=== PATIENT | male | born 1945 | race Caucasian/White ===

== ENCOUNTER 2016-10-07 11:54 | Inpatient (IN) | payer MEDICARE ==
[~2016-10-07] VITALS: Ht 175.3 cm; Wt 72.5 kg
[2016-10-10] MEDS ORDERED: CARB25TA9 PO (14:11)
[2016-10-10] MEDS ORDERED: METF850T PO (14:11)
[2016-10-10] MEDS ORDERED: LISI-515 PO (14:11)
[2016-10-10] MEDS ORDERED: PROP20TA3 PO (14:11)
[2016-10-10] MEDS ORDERED: MULTTAB67 PO (14:12)
[2016-10-10] MEDS ORDERED: COEN1CAP PO (14:14)
[2016-10-10] MEDS ORDERED: VITA2000 PO (14:14)
[2016-10-14] MEDS ORDERED: ALVIMOPAN 12 MG CAPSULE - On Call PO SCH (06:00)
[2016-10-14] MEDS ORDERED: ceFAZolin 1,000 MG/NS 100 ML IV SCH ×2 (06:00)
[2016-10-14] MEDS ORDERED: METRONIDAZOLE 500 MG/100 ML ISONTONIC SOLN IV PRN (06:00)
[2016-10-14] MEDS ORDERED: METOPROLOL TARTRATE 25 MG TAB PO PRN (06:30)
[2016-10-14] MEDS ORDERED: LACTATED RINGER'S 1000 ML IV PRN (06:30)
[2016-10-14] MEDS ORDERED: POVIDONE IODINE 5% (ANTISEPSIS KIT) 4 APPLICATIONS EACH NARE PRN (06:30)
[2016-10-14] MEDS ORDERED: INSULIN HUMAN REGULAR 1,000 UNITS/10 ML VIAL SQ PRN (06:30)
[2016-10-14] MEDS ORDERED: SODIUM CHLORID 0.9% 500 ML IV PRN (06:30)
[2016-10-14] MEDS ORDERED: CHLORHEXIDINE GLUCONATE 2 % 1 PACK (2 CLOTHS) TOPICAL PRN (06:30)
[2016-10-14 06:38] VITALS: BP 150/82; PULSE 70; RESP 20; TEMP 98.5; O2SAT 100
[2016-10-14] MEDS ORDERED: FAMOTIDINE 20 MG/2 ML VIAL ONE (07:20)
[2016-10-14] MEDS ORDERED: MIDAZOLAM HCL 2 MG/2 ML VIAL ONE (07:20)
[2016-10-14 07:29] LABS: AUTOMATED NEUTROPHIL # 5.4 TH/MM3 (1.8-7.7); BASOPHIL # 0.1 TH/MM3 (0-0.2); BASOPHIL % 0.6 % (0.0-2.0); EOSINOPHIL # 0.1 TH/MM3 (0-0.4); EOSINOPHIL % 1.7 % (0.0-4.0); HEMATOCRIT 36.9 % (39.0-51.0); HEMO FLAGS DIFF FINAL; LYMPH % 26.6 % (9.0-44.0); LYMPHOCYTE # 2.4 TH/MM3 (1.0-4.8); MEAN CORPUSCULAR HEMOGLOBIN 36.2 PG (27.0-34.0); MEAN CORPUSCULAR HGB CONC 35.9 % (32.0-36.0); MONO % 10.7 % (0.0-8.0); NEUT % 60.4 % (16.0-70.0); PLATELET COUNT 140 TH/MM3 (150-450); RED BLOOD COUNT 3.66 MIL/MM3 (4.50-5.90); RED CELL DISTRIBUTION WIDTH 12.9 % (11.6-17.2); WHITE BLOOD COUNT 8.9 TH/MM3 (4.0-11.0)
[2016-10-14 07:54] LABS: BICARBONATE 29.3 MEQ/L (21.0-32.0); POTASSIUM 4.4 MEQ/L (3.5-5.1)
[2016-10-14] MEDS ORDERED: BUPIVACAINE HCL PF 0.5% 30 ML VIAL ONE (08:09)
[2016-10-14] MEDS ORDERED: DO NOT ADM ANY ANTICOAGULANT DRUGS PRN (10:12)
[2016-10-14] MEDS ORDERED: hydrALAZINE HCL 20 MG/ML VIAL ONE (10:13)
[2016-10-14] MEDS ORDERED: NALOXONE HCL 0.4 MG/ML AMP IV PRN ×2 (10:15)
[2016-10-14] MEDS ORDERED: SODIUM CHLORIDE 0.9% FLUSH 10 ML FLUSH IV FLUSH PRN (10:15)
[2016-10-14] MEDS ORDERED: ONDANSETRON HCL 4 MG/2 ML VIAL IV PRN (10:15)
[2016-10-14] MEDS ORDERED: HYDROmorphone HCL PF 1 MG/ML VIAL IV PRN (10:15)
[2016-10-14] MEDS ORDERED: Post-op Orders (for Pharmacy) MISC XX ONE (10:15)
[2016-10-14] MEDS ORDERED: fentaNYL CITRATE 250 MCG/5 ML AMP ONE (10:17)
[2016-10-14] MEDS ORDERED: *morphine SULFATE 8 MG/ML PERIprocedure ONLY ONE (10:22)
[2016-10-14] MEDS: LACTATED RINGER'S 1000 ML INJ 1,000 ML IV SCH ×2 (10:45→23:40)
[2016-10-14] MEDS: HYDROmorphone HCL PCA 6 MG/30 ML IV SCH (10:49)
[2016-10-14] MEDS ORDERED: hydrALAZINE HCL 20 MG/ML VIAL IV PUSH ONE (11:00)
[2016-10-14] MEDS: ACETAMINOPHEN 1000 MG/100 ML VIAL IV SCH ×3 (11:08→23:39)
[2016-10-14] MEDS ORDERED: LACTATED RINGER'S 1000 ML INJ 1,000 ML IV ONE (12:00)
[2016-10-14] MEDS ORDERED: PROPOFOL 200 MG/20 ML AMP IV ONE (12:00)
[2016-10-14] MEDS ORDERED: ONDANSETRON HCL 4 MG/2 ML VIAL IV PUSH ONE (12:00)
[2016-10-14] MEDS ORDERED: KETOROLAC TROMETHAMINE 60 MG/2 ML (IM) VIAL IM ONE (12:00)
[2016-10-14] MEDS ORDERED: NEOSTIGMINE 3 MG/3 ML SYR IV ONE (12:00)
--- NOTE | 2016-10-14 12:05 | EKG ---
Date Performed: 10/14/2016 Time Performed: 06:55:23 PTAGE: 71 years EKG: Sinus rhythm NONSPECIFIC ST & T-WAVE ABNORMALITY BORDERLINE ECG PREVIOUS TRACING : 02/15/2001 14.21 Compared to prior tracing no significant change DOCTOR: Cipriano Pérez Interpretating Date/Time 10/14/2016 12:03:12
[2016-10-14] MEDS: PANTOPRAZOLE SODIUM 40 MG VIAL IV SCH (13:10)
[2016-10-14 20:00] VITALS: BP 141/68; PULSE 90; RESP 18; TEMP 96.7; O2SAT 98
[2016-10-14] MEDS: PCA - TOTAL MG DILAUDID DELIVERED PER SHIFT OTHER SCH (22:00)
[2016-10-14] MEDS: SODIUM CHLORIDE 0.9% FLUSH 10 ML FLUSH IV FLUSH SCH (23:40)
[2016-10-15] VITALS (8 sets, daily range): BP systolic 112–176; BP diastolic 56–86; PULSE 80–117; RESP 17–20; TEMP 96.1–99; O2SAT 92–99
[2016-10-15] MEDS: HYDROmorphone HCL PCA 6 MG/30 ML IV SCH (03:01)
[2016-10-15] MEDS: ACETAMINOPHEN 1000 MG/100 ML VIAL IV SCH (05:49)
[2016-10-15] MEDS: PCA - TOTAL MG DILAUDID DELIVERED PER SHIFT OTHER SCH ×3 (06:00→22:00)
[2016-10-15] MEDS: LACTATED RINGER'S 1000 ML INJ 1,000 ML IV SCH ×2 (07:51→16:14)
[2016-10-15] MEDS: SODIUM CHLORIDE 0.9% FLUSH 10 ML FLUSH IV FLUSH SCH ×2 (08:35→23:00)
[2016-10-15] MEDS: ALVIMOPAN 12 MG CAPSULE - Post-op dosing PO SCH ×2 (08:35→21:00)
--- NOTE | 2016-10-15 08:52 | HHI.PR ---
Subjective Subjective Notes DAILY PROGRESS NOTE FOR SURGICAL ATTENDING, DR. DARYL VANEGAS i slept all night I didn't have any pain Objective Vitals/I&O 10/14/16 10/14/16 10/15/16 15:00 23:00 07:00 Intake Total 1500 ml 570 ml 1256 ml Output Total 750 ml 550 ml 450 ml Balance 750 ml 20 ml 806 ml Intake Oral 120 ml 120 ml IV Total 450 ml 1136 ml Other 1500 ml Output Urine Total 700 ml 550 ml 450 ml Estimated Blood Loss 50 ml # Bowel Movements 0 0 Labs Laboratory Tests Test 10/14/16 06:50 White Blood Count 8.9 TH/MM3 Red Blood Count 3.66 MIL/MM3 Hemoglobin 13.2 GM/DL Hematocrit 36.9 % Mean Corpuscular Volume 101.0 FL Mean Corpuscular Hemoglobin 36.2 PG Mean Corpuscular Hemoglobin 35.9 % Concent Red Cell Distribution Width 12.9 % Platelet Count 140 TH/MM3 Mean Platelet Volume 8.3 FL Neutrophils (%) (Auto) 60.4 % Lymphocytes (%) (Auto) 26.6 % Monocytes (%) (Auto) 10.7 % Eosinophils (%) (Auto) 1.7 % Basophils (%) (Auto) 0.6 % Neutrophils # (Auto) 5.4 TH/MM3 Lymphocytes # (Auto) 2.4 TH/MM3 Monocytes # (Auto) 1.0 TH/MM3 Eosinophils # (Auto) 0.1 TH/MM3 Basophils # (Auto) 0.1 TH/MM3 CBC Comment DIFF FINAL Differential Comment Sodium Level 140 MEQ/L Potassium Level 4.4 MEQ/L Chloride Level 101 MEQ/L Carbon Dioxide Level 29.3 MEQ/L Anion Gap 10 MEQ/L Blood Urea Nitrogen 11 MG/DL Creatinine 0.92 MG/DL Estimat Glomerular Filtration 81 ML/MIN Rate Random Glucose 163 MG/DL Calcium Level 9.4 MG/DL Blood Type O POSITIVE Antibody Screen NEGATIVE Blood Bank Comment Cardiovascular: Regular Lungs: Clear Abdomen: Post-op tenderness Extremities: No edema, SCD's on Narrative Exam RAZA dressing intact Wound Wound : Wound Location: Abdomen Appearance: Clean & Dry Dressing: Dry A/P Problem List: (1) Status post colon resection (2) Mass of hepatic flexure of colon Assessment and Plan 71-year-old gentleman status post laparoscopic-assisted extended right colon resection doing well Minimal discomfort DC Pablo spirometer Slowly advance diet as tolerated Await path report Anticipate discharge the weekend Attending Statement NOTE FOR SURGICAL ATTENDING, DR. DARYL VANEGAS I agree with above assessment and plan. The following services were provided during this hospital visit: Chart data review, vital sign assessments/reviewing monitor data Review of consultations notes if present. Medication orders/review and/or management Ordering and/or reviewing lab tests Ordering and/or interpreting/reviewing x-rays and/or diagnostic studies Care of the patient and discussion of the patient with the care team Documentation time To help prompt me to consider important information that might be impacting today's encounter and assessment, information from prior notes written by myself or my colleagues may have been "brought forward/copy and pasted" into today's note. Daryl Vanegas MD Oct 15, 2016 08:52
[2016-10-15] MEDS: ENOXAPARIN SODIUM 30 MG/0.3 ML SYRINGE SQ SCH (09:32)
[2016-10-15] MEDS: PANTOPRAZOLE SODIUM 40 MG VIAL IV SCH (12:18)
[2016-10-15] MEDS: ALVIMOPAN 12 MG CAPSULE PO SCH (22:03)
[2016-10-16] VITALS: BP 142/80; PULSE 97; RESP 18; TEMP 99.5; O2SAT 93
[2016-10-16] MEDS: HYDROmorphone HCL PCA 6 MG/30 ML IV SCH (00:36)
[2016-10-16] MEDS: LACTATED RINGER'S 1000 ML INJ 1,000 ML IV SCH ×2 (02:14→11:34)
[2016-10-16] MEDS: PCA - TOTAL MG DILAUDID DELIVERED PER SHIFT OTHER SCH (06:00)
[2016-10-16] MEDS: ALVIMOPAN 12 MG CAPSULE - Post-op dosing PO SCH ×2 (07:26→21:00)
[2016-10-16] MEDS: ENOXAPARIN SODIUM 30 MG/0.3 ML SYRINGE SQ SCH (07:57)
[2016-10-16] MEDS: ALVIMOPAN 12 MG CAPSULE PO SCH ×2 (07:57→21:52)
[2016-10-16] MEDS: SODIUM CHLORIDE 0.9% FLUSH 10 ML FLUSH IV FLUSH SCH ×2 (07:57→19:55)
[2016-10-16 08:00] VITALS: BP 189/81; PULSE 110; RESP 19; TEMP 96; O2SAT 92
--- NOTE | 2016-10-16 10:37 | MP ---
cc: JONATHON VANEGAS M.D. DATE OF SURGERY: 10/14/2016 PREOPERATIVE DIAGNOSIS Right hepatic flexure colon mass. POSTOPERATIVE DIAGNOSIS Right hepatic flexure colon mass. PROCEDURE Laparoscopic-assisted extended right hemicolectomy. ANESTHESIA General. SURGEON Dr. Jonathon Vanegas ATTENDING AMBULATORY CARE SURGEON Dr. Felton Agrawal INDICATION This is a pleasant 71-year-old gentleman who was found on colonoscopy to have a mass in the hepatic flexure that was tattooed. Plans were made for above. DETAILS OF PROCEDURE The patient was taken to the operating room and placed in the supine position. After anesthesia a timeout is done. He was given preoperative antibiotics. He is prepped and draped with Betadine. He had a bowel pre-op. We make an incision just above the umbilicus. The trocar is then directly entered into the abdomen. The abdomen is insufflated with 15 mmHg. A 5 mm trocar is placed above this and a 5 mm below the umbilicus. Using the Harmonic scalpel we take down the white line of Toldt in the right colon up past the hepatic flexure. We can see the tattoo rodriguez. He is status post a cholecystectomy. Some adhesions are taken down to free up the ascending colon. We are able to take some scar tissue from his appendix down from the retroperitoneum. The small bowel is elevated up from the retroperitoneum as well. We elevate the colon and free it up to the midline all the way to the transverse colon. With this done we then slightly elongate the incision above the umbilicus to join the 5 [address] site. We place the wound protector around the wound and then are able to bring out the colon, the right colon, small bowel to the transverse colon. We then divide the transverse colon approximately 6 cm distally from the tattooed area that could be palpated. This is just to the right of the middle colic vessel. We then take the GI stapling device to the distal ileum and separate this. We then elevate the colon more into the field and take the mesentery down to the root where some nodes are noted but I do not think pathologic. The vessels are tied with a 2-0 Vicryl. The specimen is then passed off the field. We then inspect the abdomen. The liver is smooth, peritoneal surfaces are smooth. No other gross abnormalities are seen. We then ready the anastomosis, a [id number] functional end-to-end anastomosis using the FOREST staple lines. We did remove approximately five more centimeters of distal ileum to facilitate a clean lay of the ileum to the distal transverse colon. A GI stapling device is used to make a [id number] functional end-to-end anastomosis. The remaining enterotomy is then closed with a TA 60. This is oversewn with 3-0 silk pop-offs. The mesentery defect is then re-approximated with 2-0 Vicryl and 3-0 silk pop-offs. After this was done the bowel was returned to the abdomen. The omentum was draped over the anastomosis. No other gross abnormality is seen. We then removed the trocars. The fascial defect is then re-approximated with a running #1 PDS. The skin is closed with 4-0 Vicryl. A RAZA dressing is applied. The patient tolerated the procedure well and had no immediate post-op complications. MD ANTELMO Britton/JAY /1:13 PM /10:19 AM
[2016-10-16] MEDS: LISINOPRIL 20 MG TAB PO SCH (11:33)
[2016-10-16] MEDS: TAMSULOSIN HCL 0.4 MG CAP PO SCH (11:33)
[2016-10-16] MEDS: PROPRANOLOL HCL 20 MG TAB PO SCH ×2 (11:33→21:53)
[2016-10-16] MEDS: PANTOPRAZOLE SODIUM 40 MG VIAL IV SCH (11:34)
[2016-10-16 12:00] VITALS: BP 180/86; PULSE 101; RESP 19; TEMP 98.4; O2SAT 97
[2016-10-16] MEDS ORDERED: ACETAMINOPHEN/HYDROcodone 325 MG/5 MG TAB PO PRN (13:15)
[2016-10-16] MEDS: CARBIDOPA/LEVODOPA 25 MG/100 MG TAB PO SCH ×2 (14:26→21:52)
--- NOTE | 2016-10-16 15:48 | HHI.PR ---
Subjective Subjective Notes PROGRESS NOTE FOR SURGICAL ATTENDING, DR. 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 DARYL VANEGAS I agree with above assessment and plan. The exam, history, and the medical decision-making described in the above note were completed with the assistance of the mid-level provider. I reviewed and agree with the findings presented. path reviewed with pat and recovering min pain I attest that I had a [id number] encounter with the patient on the same day, and personally performed and documented my assessment and findings in the medical record. The following services were provided during this hospital visit: Chart data review, vital sign assessments/reviewing monitor data Review of consultations notes if present. Medication orders/review and/or management Ordering and/or reviewing lab tests Ordering and/or interpreting/reviewing x-rays and/or diagnostic studies Care of the patient and discussion of the patient with the care team Documentation time To help prompt me to consider important information that might be impacting today's encounter and assessment, information from prior notes written by myself or my colleagues may have been "brought forward/copy and pasted" into today's note. Thania Rodríguez Oct 16, 2016 15:48 Daryl Vanegas MD Oct 16, 2016 16:00
[2016-10-16 16:00] VITALS: BP 172/82; PULSE 87; RESP 18; TEMP 95.6; O2SAT 96
[2016-10-16 17:04] VITALS: O2SAT 96
[2016-10-16 20:00] VITALS: BP 167/96; PULSE 84; RESP 18; TEMP 98.3; O2SAT 95
[2016-10-16] MEDS: CHOLECALCIFEROL (VIT D3) 1000 UNIT TAB PO SCH (21:53)
[2016-10-17] VITALS: BP 182/97; PULSE 91; RESP 18; TEMP 98; O2SAT 97
[2016-10-17] MEDS: CARBIDOPA/LEVODOPA 25 MG/100 MG TAB PO SCH ×3 (05:36→21:41)
[2016-10-17] MEDS: ALVIMOPAN 12 MG CAPSULE - Post-op dosing PO SCH (07:17)
[2016-10-17] MEDS: SODIUM CHLORIDE 0.9% FLUSH 10 ML FLUSH IV FLUSH SCH ×2 (07:17→21:42)
[2016-10-17] MEDS: LISINOPRIL 20 MG TAB PO SCH (07:51)
[2016-10-17] MEDS: ENOXAPARIN SODIUM 30 MG/0.3 ML SYRINGE SQ SCH (07:51)
[2016-10-17] MEDS: PANTOPRAZOLE SOD 20 MG DELAYED RELEASE TAB PO SCH (07:51)
[2016-10-17] MEDS: MULTIVITAMIN TAB PO SCH (07:51)
[2016-10-17] MEDS: ALVIMOPAN 12 MG CAPSULE PO SCH ×2 (07:51→21:42)
[2016-10-17] MEDS: PROPRANOLOL HCL 20 MG TAB PO SCH ×2 (07:51→21:41)
[2016-10-17] MEDS: CHOLECALCIFEROL (VIT D3) 1000 UNIT TAB PO SCH ×2 (07:51→21:41)
[2016-10-17] MEDS: TAMSULOSIN HCL 0.4 MG CAP PO SCH (07:51)
[2016-10-17 08:00] VITALS: BP 180/88; PULSE 74; RESP 12; TEMP 99; O2SAT 96
[2016-10-17] MEDS ORDERED: NON-FORMULARY DRUG (Coenzyme Q10 (Ubidecarenone) (Co Q-10) 1 CAP) PO SCH (09:00)
[2016-10-17 12:00] VITALS: BP 157/70; PULSE 80; RESP 16; TEMP 97.7; O2SAT 97
--- NOTE | 2016-10-17 12:17 | HHI.PR ---
Subjective Subjective Notes DAILY PROGRESS NOTE FOR SURGICAL ATTENDING, DR. 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 DARYL VANEGAS I agree with above assessment and plan. The exam, history, and the medical decision-making described in the above note were completed with the assistance of the mid-level provider. I reviewed and agree with the findings presented. I attest that I had a [id number] encounter with the patient on the same day, and personally performed and documented my assessment and findings in the medical record. Discussed with over the phone I think he has somewhat of a owning effect he has some mild baseline dementia. I think this was exposed during this event I anticipate discharge tomorrow I think getting him in his home surroundings will assist in his recovery. His agrees Plan discharge tomorrow Follow-up in my office The following services were provided during this hospital visit: Chart data review, vital sign assessments/reviewing monitor data Review of consultations notes if present. Medication orders/review and/or management Ordering and/or reviewing lab tests Ordering and/or interpreting/reviewing x-rays and/or diagnostic studies Care of the patient and discussion of the patient with the care team Documentation time To help prompt me to consider important information that might be impacting today's encounter and assessment, information from prior notes written by myself or my colleagues may have been "brought forward/copy and pasted" into today's note. Thania Rodríguez Oct 17, 2016 12:17 Daryl Vanegas MD Oct 17, 2016 14:12
[2016-10-17 12:32] VITALS: O2SAT 96
[2016-10-17 16:00] VITALS: BP 171/88; PULSE 83; RESP 17; TEMP 97.1; O2SAT 95
[2016-10-17 20:00] VITALS: BP 188/90; PULSE 81; RESP 16; TEMP 98.5; O2SAT 97
[2016-10-18] VITALS: BP 193/91; PULSE 81; RESP 18; TEMP 98.3; O2SAT 90
[2016-10-18] MEDS: CARBIDOPA/LEVODOPA 25 MG/100 MG TAB PO SCH ×2 (05:53→14:44)
[2016-10-18 08:00] VITALS: BP 190/87; PULSE 71; RESP 18; TEMP 97.6; O2SAT 96
[2016-10-18] MEDS: SODIUM CHLORIDE 0.9% FLUSH 10 ML FLUSH IV FLUSH SCH (09:00)
[2016-10-18] MEDS: MULTIVITAMIN TAB PO SCH (10:00)
[2016-10-18] MEDS: ALVIMOPAN 12 MG CAPSULE PO SCH (10:00)
[2016-10-18] MEDS: CHOLECALCIFEROL (VIT D3) 1000 UNIT TAB PO SCH (10:00)
[2016-10-18] MEDS: ENOXAPARIN SODIUM 30 MG/0.3 ML SYRINGE SQ SCH (10:01)
[2016-10-18] MEDS: PANTOPRAZOLE SOD 20 MG DELAYED RELEASE TAB PO SCH (10:01)
[2016-10-18] MEDS: LISINOPRIL 20 MG TAB PO SCH (10:01)
[2016-10-18] MEDS: TAMSULOSIN HCL 0.4 MG CAP PO SCH (10:01)
[2016-10-18] MEDS: ACETAMINOPHEN 325 MG TAB PO PRN ×2 (10:05→14:46)
[2016-10-18] MEDS: PROPRANOLOL HCL 20 MG TAB PO SCH (10:05)
[2016-10-18 12:00] VITALS: BP 145/76; PULSE 71; RESP 20; TEMP 97.1; O2SAT 99
== END 2016-10-18 15:49 | disposition home or self-care (01) | DRG 330 ==
LOC: HSDI 10-14 05:36 → N07A 10-14 18:47
PROVIDERS: ADMIT Surgery; ATTEND Surgery
PROC: 0DBB0ZZ Excision of Ileum, Open Approach (ICD-10-PCS; 2016-10-14)
PROC: 0DBL0ZZ Excision of Transverse Colon, Open Approach (ICD-10-PCS; 2016-10-14)
PROC: 0DTF0ZZ Resection of Right Large Intestine, Open Approach (ICD-10-PCS; principal; 2016-10-14 07:28)
DX: C18.2 Malignant neoplasm of ascending colon (principal); C18.3 Malignant neoplasm of hepatic flexure; F05 Delirium due to known physiological condition; F03.90 Unspecified dementia, unspecified severity, without behavioral disturbance, psychotic disturbance, mood disturbance, and anxiety; E11.9 Type 2 diabetes mellitus without complications; I10 Essential (primary) hypertension; Z80.0 Family history of malignant neoplasm of digestive organs; Z79.84 Long term (current) use of oral hypoglycemic drugs; Z87.891 Personal history of nicotine dependence; R45.1 Restlessness and agitation
CPT/HCPCS: 80048; 85025; 86850; 86900; 86901; 88307; 88309; 93005; 94150; C9113; J0131; J0360; J0690; J1170; J1650; J1885; J2250; J2270; J2405; J2710; J3010; J7120